=== PATIENT | male | born 1970 | race Caucasian/White ===

== ENCOUNTER 2017-08-13 09:51 | Emergency (ER) | END 2017-08-13 11:40 | disposition home or self-care (01) ==

== ENCOUNTER 2017-08-24 06:23 | Emergency (ER) | END 2017-08-24 07:39 | disposition home or self-care (01) ==

== ENCOUNTER 2017-08-26 07:03 | Emergency (ER) | END 2017-08-26 07:57 | disposition home or self-care (01) ==